=== PATIENT | male | born 1960 | race Caucasian/White ===

== ENCOUNTER 2024-04-20 18:02 | Emergency (ER) | payer MEDICARE ==
[~2024-04-20] VITALS: Ht 170.2 cm; Wt 86.0 kg
[2024-04-20 18:09] VITALS: BP 122/63
[2024-04-20 18:29] LABS: BASO% 0.2 % (0-3); HEMATOCRIT 36.2 % (39.0-50.0); HEMOGLOBIN 12.1 g/dl (14.0-18.0); IMMATURE GRANULOCYTES 0.3 % (0.0-5.0); LYMPH% 20.9 % (15-41); MEAN CORPUSCULAR HGB 29.4 pG CALC (26.0-32.0); MEAN CORPUSCULAR HGB CONC 33.4 g/dL CAL (32.0-36.0); MONO% 7.7 % (2-13); NEUT# 10.21 thou/uL (1.82-7.42); NEUT% 69.9 % (42-76); RED BLOOD COUNT 4.12 mill/uL (4.70-6.10); RED CELL DISTRI WIDTH 13.9 % (11.5-15.5)
[2024-04-20 18:30] LABS: MEAN CELL VOLUME 87.9 fL CALC (80.0-100.0)
[2024-04-20 18:44] LABS: INTERNATIONAL NORMALIZED RATIO 1.1 RATIO (0.7-1.3)
[2024-04-20 18:45] LABS: PROTHROMBIN TIME 10.2 SECONDS (9.0-12.5)
[2024-04-20 18:47] LABS: ALBUMIN 4.1 g/dL (3.2-5.0); BILIRUBIN, TOTAL 0.4 mg/dL (0.2-1.3); CREATININE 2.2 mg/dL (0.7-1.3); MAGNESIUM 2.1 mg/dL (1.6-2.3); POTASSIUM 4.2 mmol/l (3.5-5.1); TOTAL PROTEIN 7.6 g/dL (6.3-8.2)
[2024-04-20] MEDS ORDERED: SODIUM CHLORIDE 0.9% 1,000 ML IV ONE (18:55)
[2024-04-20] MEDS ORDERED: LEVOTHYROXIN75 MC1 PO (19:07)
[2024-04-20] MEDS ORDERED: LISINOPRIL20 M1 PO (19:07)
[2024-04-20] MEDS ORDERED: ATORVASTATIN CA10 MG PO (19:08)
[2024-04-20] MEDS ORDERED: LACTATED RINGER'S 1,000 ML IV ONE (19:10)
[2024-04-20 20:27] LABS: URINE BILIRUBIN - DIPSTICK Negative (NEGATIVE); URINE BLOOD DIPSTICK Small (NEGATIVE); URINE GLUCOSE - DIPSTICK Negative (NEGATIVE); URINE KETONE Negative (NEGATIVE); URINE LEUK ESTERASE Negative (NEGATIVE); URINE NITRITE - DIPSTICK Negative (Negative); URINE PH 5.5 (4.5-8.0); URINE PROTEIN - DIPSTICK 30 mg/dL (NEG-TRACE); URINE UROBILINOGEN - DIPSTICK 0.2 E.U./dL (0.2)
[2024-04-20 20:37] LABS: URINE COLOR Yellow
[2024-04-20 20:40] LABS: URINE SQUAMOUS EPITHELIAL CELL FEW EPI/hpf (0-FEW); URINE WBC 0-2 WBC/hpf (0-5)
[2024-04-20] MEDS ORDERED: DEXAMETHASONE SOD. PHOSPHATE 10 MG/ML VIAL IV ONE (21:35)
[2024-04-20] MEDS ORDERED: DECADRON4 MG PO (21:36)
[2024-04-20] MEDS ORDERED: KEPPRA750 M2 PO (21:36)
[2024-04-20 22:26] VITALS: BP 122/63
== END 2024-04-20 22:27 | disposition home or self-care (01) ==
LOC: ED 18:02
PROVIDERS: Family Medicine
DX: R56.9 Unspecified convulsions (principal); R91.8 Other nonspecific abnormal finding of lung field; G93.9 Disorder of brain, unspecified; I10 Essential (primary) hypertension; F17.200 Nicotine dependence, unspecified, uncomplicated; Z20.822 Contact with and (suspected) exposure to COVID-19
CPT/HCPCS: J1953